=== PATIENT | female | born 2000 | race Caucasian/White ===

== ENCOUNTER → 2021-02-03 11:22 | Outpatient (BNVA) | payer OTHER, SELFPAY | PROVIDERS: Family Provider Nurse Practitioner Family; PCP Nurse Practitioner Family; Visit Provider Nurse Practitioner Family | DX: Z20.822 Contact with and (suspected) exposure to COVID-19 (principal); J06.9 Acute upper respiratory infection, unspecified | CPT/HCPCS: 87635 ==

== ENCOUNTER → 2021-05-24 10:46 | Outpatient (BNVA) | payer SELFPAY | PROVIDERS: Family Provider Nurse Practitioner Family; PCP Nurse Practitioner Family; Visit Provider Family Medicine | DX: E28.2 Polycystic ovarian syndrome (principal); R53.83 Other fatigue; Z13.6 Encounter for screening for cardiovascular disorders; Z13.1 Encounter for screening for diabetes mellitus; Z20.2 Contact with and (suspected) exposure to infections with a predominantly sexual mode of transmission; Z86.19 Personal history of other infectious and parasitic diseases | CPT/HCPCS: 80053; 80061; 84403; 84443; 85025; 87491; 87591; 87661 ==

== ENCOUNTER 2023-01-26 13:57 | Emergency (ER) | payer MEDICAID, SELFPAY ==
[2023-01-26 14:08] VITALS: BP 145/96; PULSE 105; RESP 17; TEMP 37.1; O2SAT 96; BMI 30.8
[2023-01-26 14:42] LABS: Basophils % 0.3 %; Eosinophils # 0.2 10^3/uL (0.0-0.8); Eosinophils % 1.8 %; Hematocrit 44.4 % (37.0-47.0); Hemoglobin 14.7 g/dL (11.5-15.3); Lymphocytes # 2.7 10^3/uL (0.8-4.8); Mean Corpuscular HGB Conc 33.1 g/dL (30.0-36.0); Mean Corpuscular Hemoglobin 27.6 pg (28.0-34.0); Mean Corpuscular Volume 83.5 fl (81-99); Mean Platelet Volume 9.2 fL (7.4-10.4); Monocytes # 0.7 10^3/uL (0.2-0.9); Monocytes % 6.8 %; Neutrophils # 6.27 10^3/uL (1.8-7.7); Neutrophils % 63.8 %; Nucleated Red Blood Cells % 0 %; Platelet Count 288 10^3/cmm (130-400); Red Blood Count 5.32 10^6/uL (4.1-5.3); Red Cell Distribution Width 12.9 % (12.1-15.1); White Blood Count 9.8 10^3/uL (4.0-10.0)
[2023-01-26 14:55] LABS: Add Urine Microscopic? YES; Bilirubin Urine Neg (Negative); Blood Urine 3+ (Negative); Glucose Urine UA Norm (Normal); Ketones Urine Negative (Negative); Leukocyte Esterase Urine 2+ (Negative); Nitrate Urine Negative (Negative); Protein Urine 2+ (Negative); RBC Urine >100 /hpf (0-2); Specific Gravity, Urine 1.005 (1.005-1.030); Sulfosalicylic Acid Urine Positive (Negative); Urine Appearance Cloudy (CLEAR); Urine Color Red (Yellow); Urobilinogen Urine Norm (Negative); pH Urine 8 (5-7)
[2023-01-26 14:56] LABS: Add Urine Culture? Yes; Bacteria Urine TRACE /hpf; Squamous Epithelial Cell Urine 0-4 /hpf (0-5)
[2023-01-26 14:57] LABS: HCG, Serum Qual Negative (Negative)
[2023-01-26 15:01] LABS: HCG Qualitative Urine. Negative (Negative)
[2023-01-26 15:02] LABS: Alanine Aminotransferase 35 U/L (0-33); Albumin Level 4.6 g/dL (3.5-5.2); Alkaline Phosphatase 93 U/L (35-105); Anion Gap 12.9 (5-19); Aspartate Amino Transferase 18 U/L (0-32); Blood Urea Nitrogen 12 mg/dL (6-20); Calcium 9.3 mg/dL (8.5-10.5); Carbon Dioxide 27 mmol/L (22-29); Chloride 102 mmol/L (98-107); Glomerular Filtration Rate 76.9 mL/min (90-130); Glucose 97 mg/dL (65-115); Osmolality Calculated 286 mOsm/kg (285-295); Potassium 3.9 mmol/L (3.5-5.1); Sodium 138 mmol/L (136-145); Total Bilirubin 0.4 mg/dL (0.15-1.2); Total Protein 7.6 g/dL (6.6-8.7)
[2023-01-26 15:30] LABS: Thyroid Stimulating Hormone 0.96 uIU/mL (0.27-4.20)
--- NOTE | 2023-01-26 15:34 | PC.PHAR ---
pt states she takes care of her own medications-pt has a symbicort 160-4.5 2 p bid written on 12/06/22 and colace 100mg hs prn written 11/18/22 both rxs are on hold-pt states use to take lexapro 10mg daily,metformin 500mg daily,prilosec 20mg daily,miralax 17g daily,spironolactone 25mg bid,zoloft 25mg daily,gabapentin 300mg tid (shes allergic to now),bupropion xl 150mg daily,risperidone 0.5mg tid,lisinopril 5mg daily and propranolol 10mg bid, not taken in over 6 months or longer-
--- NOTE | 2023-01-26 16:29 | ED_ITS ---
HPI - Female Genitourinary General: Chief complaint: Vaginal Bleeding Stated complaint: no period for 9 years, now bleeding 9days Time Seen by Provider: 01/26/23 14:32 History of Present Illness: 22-year-old female presents emergency room vaginal bleeding for the past 7 days. Patient further reveals history of PCOS and the menstruation for about 9 years. And reveals vaginal bleeding daily using a bowel 3-4 pads daily. She reveals some lower abdominal pain described the pain as throbbing sensation with severity of 5 out of 10. She felt dizzy today. No nausea, vomiting, diarrhea or bloody stool. Dysuria, hematuria urine frequency. No concern for STDs at this time. No new sexual partners. No vaginal discharge Associated symptoms: Deny vaginal discharge Review of Systems General: Reports: 10 or more systems reviewed and unremarkable except in HPI and below : Reports: vaginal bleeding and pelvic pain; Denies: flank pain, difficulty voiding, dysuria, urinary incontinence, hematuria, genital lesions, genital pruritis, vaginal dryness, vaginal odor, vaginal discharge, dysmenorrhea, metrorrhagia or amenorrhea FOR[facility]LY [facility] ED PFSH: Medical History (Updated 01/26/23 @ 16:34 by Pennie Pabon MD) Essential hypertension GERD (gastroesophageal reflux disease) Surgical History S/P tonsillectomy Family History Other Cancer Diabetes Hypertension Social History Smoking and tobacco status: never smoked Alcohol intake: current Alcohol intake frequency: few times a week Desire information about alcohol rehabilitation?: No Substance/Drug Use: never Desire information about substance/drug rehabilitation?: No Current gender identity: Female Physical Exam Const: COMMON NORMALS: no acute distress, average body habitus, patient oriented x3, no limitations, healthy appearing, alert and well nourished Chest: COMMONS NORMALS: normal inspection of the chest, normal palpation of entire chest wall, normal inspection of the breasts and normal palpation of the breasts Breast/axilla inspection: Yes normal inspection of the breasts BREAST/AXILLA PALPATION: Yes normal palpation of the breasts Resp: COMMON NORMALS: normal respiratory effort, No retractions, No use of accessory muscles, clear to auscultation bilaterally and percussion normal AUSCULTATION: clear to auscultation bilaterally PERCUSSION: percussion normal GI: COMMON NORMALS: Soft to palpation INSPECTION: Yes normal to inspection PALPATION: Yes Soft to palpation, Yes Tenderness to palpation present (GI), No Hepatomegaly present, No Splenomegaly present, No Hernia present, No Pulsatile mass present and No Ascites present : EXTERNAL FEMALE EXAM: No Hernia present SPECULUM EXAM - VAGINA: No foreign body SPECULUM EXAM - CERVIX: No Tissue present in the cervical os, Yes Cervical bleeding, No mucoid cervix, No watery cervix and No Abnormal cervical discharge present OB/EXTERNAL & SPECULUM: external exam normal and Active bleeding present; no foreign bodies, no herpetic lesions, no vaginal laceration and no vulvar erythema Extremity: COMMON NORMALS: normal to inspection, full ROM, capillary refill normal, no joint enlargement, no clubbing, cyanosis or edema, no calf tenderness and no pedal edema Neuro: COMMON NORMALS: patient oriented x3 SENSORIUM/ORIENTATION: Yes alert Skin: COMMON NORMALS: no rashes or lesions noted, no wounds, turgor normal, no jaundice, no petechiae and no mottling GENERAL SKIN EXAM: no rashes or lesions noted and turgor normal Course Consultations: Consultation #1: spoke with Dr Cortez and he recommeded Lysteda Vital Signs: Vital signs: Vital Signs Temperature 98.7 F 01/26/23 14:08 Pulse Rate 105 H 01/26/23 14:08 Respiratory Rate 17 01/26/23 14:08 Blood Pressure 145/96 01/26/23 14:08 Pulse Oximetry 96 01/26/23 14:08 Oxygen Delivery Me thod Room Air 01/26/23 14:08 MDM - Female Medical Decision Making She made comfortable emergency room. Pelvic examination was performed. Had e xtensive work-up to include labs. Discussed lab finding with the patient. She was given pain medication orally. Emmanuel patient with the on-call psychology fellow . He recommended Lysteda tid for 5 days Lab Data 01/26/23 14:32 01/26/23 14:32 Laboratory Results WBC 9.8 10^3/uL (4.0-10.0) 01/26/23 14:32 RBC 5.32 10^6/uL (4.1-5.3) H 01/26/23 14:32 Hgb 14.7 g/dL (11.5-15.3) 01/26/23 14:32 Hct 44.4 % (37.0-47.0) 01/26/23 14:32 MCV 83.5 fl (81-99) 01/26/23 14:32 MCH 27.6 pg (28.0-34.0) L 01/26/23 14:32 MCHC 33.1 g/dL (30.0-36.0) 01/26/23 14:32 RDW 12.9 % (12.1-15.1) 01/26/23 14:32 Plt Count 288 10^3/cmm (130-400) 01/26/23 14:32 MPV 9.2 fL (7.4-10.4) 01/26/23 14:32 Neut % (Auto) 63.8 % 01/26/23 14:32 Lymph % (Auto) 27.0 % 01/26/23 14:32 Coryell % (Auto) 6.8 % 01/26/23 14:32 Eos % (Auto) 1.8 % 01/26/23 14:32 Baso % (Auto) 0.3 % 01/26/23 14:32 Neut # (Auto) 6.27 10^3/uL (1.8-7.7) 01/26/23 14:32 Lymph # (Auto) 2.7 10^3/uL (0.8-4.8) 01/26/23 14:32 Coryell # (Auto) 0.7 10^3/uL (0.2-0.9) 01/26/23 14:32 Eos # (Auto) 0.2 10^3/uL (0.0-0.8) 01/26/23 14:32 Baso # (Auto) 0.0 10^3/uL (0.0-0.1) 01/26/23 14:32 Nucleated RBC % (auto) 0 % 01/26/23 14:32 Nucleated RBCs # 0.0 /100WBC 01/26/23 14:32 Sodium 138 mmol/L (136-145) 01/26/23 14:32 Potassium 3.9 mmol/L (3.5-5.1) 01/26/23 14:32 Chloride 102 mmol/L (98-107) 01/26/23 14:32 Carbon Dioxide 27 mmol/L (22-29) 01/26/23 14:32 Anion Gap 12.9 (5-19) 01/26/23 14:32 BUN 12 mg/dL (6-20) 01/26/23 14:32 Creatinine 0.9 mg/dL (0.5-0.9) 01/26/23 14:32 GFR Calculation 76.9 mL/min (90-130) L 01/26/23 14:32 Glucose 97 mg/dL (65-115) 01/26/23 14:32 Calculated Osmolality 286 mOsm/kg (285-295) 01/26/23 14:32 Calcium 9.3 mg/dL (8.5-10.5) 01/26/23 14:32 Total Bilirubin 0.4 mg/dL (0.15-1.2) 01/26/23 14:32 AST 18 U/L (0-32) 01/26/23 14:32 ALT 35 U/L (0-33) H 01/26/23 14:32 Alkaline Phosphatase 93 U/L (35-105) 01/26/23 14:32 Total Protein 7.6 g/dL (6.6-8.7) 01/26/23 14:32 Albumin 4.6 g/dL (3.5-5.2) 01/26/23 14:32 Globulin 3.0 g/dL (1.3-4.6) 01/26/23 14:32 TSH 0.96 uIU/mL (0.27-4.20) 01/26/23 14:32 HCG, Qual Negative (Negative) 01/26/23 14:36 Urine Color Red (Yellow) 01/26/23 14:36 Urine Appearance Cloudy (CLEAR) A 01/26/23 14:36 Urine pH 8 (5-7) H 01/26/23 14:36 Ur Specific Lov[place] 1.005 (1.005-1.030) 01/26/23 14:36 Urine Protein 2+ (Negative) H 01/26/23 14:36 Urine Glucose (UA) Norm (Normal) 01/26/23 14:36 Urine Ketones Negative (Negative) 01/26/23 14:36 Urine Blood 3+ (Negative) H 01/26/23 14:36 Urine Nitrate Negative (Negative) 01/26/23 14:36 Urine Bilirubin Neg (Negative) 01/26/23 14:36 Prot Sulfosalicylic Acd Positive (Negative) 01/26/23 14:36 Urine Urobilinogen Norm mg/dL (Negative) 01/26/23 14:36 Ur Leukocyte Esterase 2+ (Negative) H 01/26/23 14:36 Urine RBC >100 /hpf (0-2) H 01/26/23 14:36 Urine WBC 5-10 /hpf (0-5) H 01/26/23 14:36 Ur Squamous Epith Cells 0-4 /hpf (0-5) H 01/26/23 14:36 Amorphous Sediment Not Reportable 01/26/23 14:36 Urine Bacteria Trace /hpf (NONE) 01/26/23 14:36 Discharge Plan Discharge Patient Disposition: Home Clinical Impression: Vaginal bleeding, Dysfunctional uterine bleeding Condition: Stable Prescriptions: New tranexamic acid 650 mg tablet 650 mg PO TID 5 Days Qty: 15 0RF No Action Rolaids 550-110 mg Tablet,Chewable 2 tab PO Q6H PRN (Reason: Heartburn) famotidine 40 mg tablet 40 mg PO BEDTIME PRN (Reason: Heartburn) hydroxyzine HCl 50 mg Tablet 12.5 - 50 mg PO TID PRN (Reason: Anxiety) triamcinolone acetonide 0.1 % cream 1 applic topical BID PRN (Reason: Rash) mupirocin 2 % ointment 1 applic TOPICAL TID PRN (Reason: Rash) Ventolin HFA 90 mcg/actuation HFA aerosol inhaler 2 puff INHALATION Q4H PRN (Reason: Shortness Of Breath) Discharge Orders: Discharge ED (Routine); Ordered 01/26/23 Ordered By: Pennie Pabon Referrals: Nadeem Cortez MD [Physician] - 4-7 days Arturo Boyce FNP [Primary Care Provider] - Patient Instructions: Opioid Safety, Pain Management Activity Restrictions/Additional Instructions: Take all medication as prescribed. Return to emergency room if symptoms persist or worsen. Coding Level of Care Code ED Aircraft Inspector for Cici Conroy
[2023-01-26] MEDS: TRAMadol 50 mg Tablet PO (16:44)
== END 2023-01-26 16:58 | disposition home or self-care (01) ==
PROVIDERS: Physician Assistant; Emergency Provider Family Medicine; PCP Nurse Practitioner Family
DX: N93.8 Other specified abnormal uterine and vaginal bleeding (principal); I10 Essential (primary) hypertension; Z79.899 Other long term (current) drug therapy
CPT/HCPCS: 36415; 80053; 81001; 81025; 84443; 84703; 85025; 87086; 99283

== ENCOUNTER → 2023-02-06 09:30 | Outpatient (BNVA) | payer MEDICAID, SELFPAY | PROVIDERS: PCP Nurse Practitioner Family; Visit Provider Obstetrics & Gynecology | DX: E28.2 Polycystic ovarian syndrome (principal); I10 Essential (primary) hypertension; Z12.4 Encounter for screening for malignant neoplasm of cervix | CPT/HCPCS: 80053; 83001; 83520; 84146; 84403; 84443; 84702; 85025 ==

== ENCOUNTER → 2023-02-14 12:07 | Outpatient (BNVA) | payer MEDICAID, SELFPAY | PROVIDERS: PCP Nurse Practitioner Family; Visit Provider Obstetrics & Gynecology | DX: N92.6 Irregular menstruation, unspecified (principal); N83.8 Other noninflammatory disorders of ovary, fallopian tube and broad ligament | CPT/HCPCS: 76830 ==

== ENCOUNTER 2023-02-21 20:00 | Outpatient (CLI) | payer MEDICAID, SELFPAY | END 2023-02-21 20:01 | disposition home or self-care (01) | LOC: SLEEP 02-22 05:13 | PROVIDERS: PCP Nurse Practitioner Family; Visit Provider Nurse Practitioner Family | DX: G47.33 Obstructive sleep apnea (adult) (pediatric) (principal) | CPT/HCPCS: 95810 ==

== ENCOUNTER 2023-03-30 05:36 | Day surgery (SDC) | payer MEDICAID, SELFPAY ==
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
[2023-03-29 13:15] VITALS: BMI 31.9
[2023-03-30] VITALS (14 sets, daily range): BP systolic 98–143; BP diastolic 72–113; PULSE 88–110; RESP 14–18; TEMP 36.1–36.8; O2SAT 95–100
[2023-03-30] MEDS: sodium chloride 0.9% 1,000 ML 30 ML IV (06:34)
[2023-03-30 06:37] LABS: OR HCG Qualitative Urine Negative (Negative)
--- NOTE | 2023-03-30 06:45 | ANES.PREANE2 ---
Pre-Anesthetic Assessment Height/Weight: Height 1.7 m Weight 92.533 kg Temp Pulse Resp BP Pulse Ox O2 Del Method 97 F L 88 18 143/113 99 Room Air 03/30/23 06:16 03/30/23 06:16 03/30/23 06:16 03/30/23 06:16 03/30/23 06:16 03/30/23 06:16 Preop Diagnosis: abnormal uterine bleeding; chronic pelvic pain; infertility Operation Date: 03/30/23 07:00 Proposed Procedures p Laparoscopy(Not Applicable) - Randy Kim MD s Pelvic exam under anesthesia 63502, Pap [id number] R10.0,N97.9,N93.9(Not Applicable) - Randy Kim MD s Poylpectomy(Not Applicable) - Randy Kim MD s Hysteroscopy, endometrial sampling, possible endometrial Myosure 13943(Not Applicable) - Randy Kim MD s possible pelvic biopsies [id number](Not Applicable) - Randy Kim MD s Possible chromotubation of fallopian tubes 84614(Not Applicable) - Randy Kim MD Familial anesthetic complications: None Was Beta Indra taken within 24 hours: N/A Was Clonidine taken within 24 hours: N/A Last intake: Intake Last Liquid Date 03/29/23 Last Liquid Time 23:00 Last Solid Date 03/29/23 Last Solid Time 19:00 Social No alcohol and No tobacco Exam alert, oriented x 3, clear to auscultation bilaterally and regular rate & rhythm Airway Mallampati: Class II Dentition: chipped Pulmonary Asthma CV/HEM Hypertension GI Gastroesophageal Reflux Disease Metabolic pcos Neuropsych Anxiety Anesthetic Plan ASA status: 3 Anesthesia: General Risk of > 500 ml blood loss (7ml/kg in children): No Medications/Allergies Home Medications Medication Instructions Recorded Confirmed Last Taken Type albuterol sulfate 90 mcg/actuation 2 puff inhalation Q4H PRN 01/26/23 03/29/23 Unknown History aerosol inhaler (Ventolin HFA) Shortness Of Breath famotidine 40 mg tablet 40 mg PO BEDTIME PRN Heartburn 01/26/23 03/29/23 Unknown History hydroxyzine HCl 50 mg tablet 12.5 - 50 mg PO TID PRN Anxiety 01/26/23 03/29/23 Unknown History mupirocin 2 % topical ointment 1 applic topical TID PRN Rash 01/26/23 03/29/23 Unknown History triamcinolone acetonide 0.1 % 1 applic topical BID PRN Rash 01/26/23 03/29/23 Unknown History topical cream Rolaids PO PRN PRN Acid Reflux 03/29/23 Unknown History Allergies Allergy/AdvReac Type Severity Reaction Status Date / Time apple Allergy Severe ALGY-Anaphy Verified 03/30/23 06:23 laxis aspirin Allergy Severe ADR-Vomitin Verified 03/30/23 06:23 g gabapentin Allergy Intermediate ADR-Itching Verified 03/30/23 06:23 Estrogens Allergy ALGY-Hives Verified 03/30/23 06:23 ethinyl estradiol Allergy hives Verified 03/30/23 06:23 [From NuvaRing] etonogestrel [From NuvaRing] Allergy hives Verified 03/30/23 06:23 progesterone Allergy ALGY-Hives Verified 03/30/23 06:23 Current Medications Generic Name Dose Route Start Last Admin Trade Name Freq PRN Reason Stop Dose Admin Sodium Chloride 1,000 mls @ 30 mls/hr 03/30/23 06:00 03/30/23 06:34 Sodium Chloride 0.9% IV 03/31/23 05:59 30 mls/hr .Q24H FARZAD Administration PFSH Anesthesia Medical History Essential hypertension GERD (gastroesophageal reflux disease) Surgical History S/P tonsillectomy Family History Mother Colon cancer Uterine cancer Hypertension Thyroid disease Father Heart disease Hypertension Hyperlipidemia Diabetes Other Cancer Denies family history of Ovarian cancer Breast cancer Stroke Social History Smoking and tobacco status: never smoked Alcohol intake: current Alcohol intake frequency: few times a week Desire information about alcohol rehabilitation?: No Substance/Drug Use: never Desire information about substance/drug rehabilitation?: No Current gender identity: Female Data Anesthesia Cardiac Studies: No Data to Display
--- NOTE | 2023-03-30 06:51 | W.PM.OPSUD ---
Surgery/Procedure H&P Update DATE OF PROCEDURE: March 30, 2023 DATE H&P PERFORMED: 03/27/23 H&P UPDATE INFORMATION: I have reviewed H&P completed within last 30 days, I have examined patient prior to procedure and No changes to prior documentation PREOP DIAGNOSIS: abnormal uterine bleeding; chronic pelvic pain; infertility PLANNED PROCEDURE: Operation Date: 03/30/23 07:00 Proposed Procedures p Laparoscopy(Not Applicable) - Randy Kim MD s Pelvic exam under anesthesia 39767, Pap [id number] R10.0,N97.9,N93.9(Not Applicable) - Randy Kim MD s Poylpectomy(Not Applicable) - Randy Kim MD s Hysteroscopy, endometrial sampling, possible endometrial Myosure 31580(Not Applicable) - Randy Kim MD s possible pelvic biopsies 21374(Not Applicable) - Randy Kim MD s Possible chromotubation of fallopian tubes 67473(Not Applicable) - Randy Kim MD
[2023-03-30] MEDS: citric acid-sodium citrate 30 mL UDC PO (07:01)
[2023-03-30] MEDS: fentaNYL 50 mcg/mL INJ 2mL IVP (08:43)
[2023-03-30] MEDS: meperidine 50 mg/mL INJ 12.5 MG IVP (08:47)
--- NOTE | 2023-03-30 08:51 | SUR.OPER ---
03/30/23 0830 Methylene blue given intrapoeratively for chromotubation of fallopian tubes.
--- NOTE | 2023-03-30 09:40 | ANE.PACU2 ---
Inpatient post-anesthesia follow up: Airway intact: Yes Vital signs: Temperature 98.2 F Pulse Rate 107 Respiratory Rate 18 Blood Pressure 136/107 Pulse Oximetry 99 Oxygen Delivery Me thod Room Air Oxygen Flow Rate 2 Fraction of Inspir ed Oxygen Hydration adequate: Yes Nausea and vomiting: No Pain level: 1 Mental status: Baseline
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
[2023-04-03 09:38] LABS: Source: Cervix
== END 2023-03-30 10:15 | disposition home or self-care (01) ==
PROVIDERS: Anesthesiology; PCP Nurse Practitioner Family; Visit Provider Obstetrics & Gynecology
PROC: (CPT 49320; principal; 2023-03-30 07:00)
PROC: (CPT 49320; 2023-03-30 07:00)
PROC: 0UDB8ZZ Extraction of Endometrium, Via Natural or Artificial Opening Endoscopic (ICD-10-PCS; CPT 58558; 2023-03-30 07:00)
PROC: 3E0P7KZ Introduction of Other Diagnostic Substance into Female Reproductive, Via Natural or Artificial Opening (ICD-10-PCS; CPT 58350; 2023-03-30 07:00)
DX: R10.2 Pelvic and perineal pain (principal); N97.9 Female infertility, unspecified; N93.9 Abnormal uterine and vaginal bleeding, unspecified; I10 Essential (primary) hypertension; K21.9 Gastro-esophageal reflux disease without esophagitis; E28.2 Polycystic ovarian syndrome
CPT/HCPCS: 49320; 58350; 58558; 81025; 84703; 87624; 88305; J0330; J1100; J1200; J2175; J2250; J2405; J2704; J2710; J3010; J3490; J7030; Q9968

== ENCOUNTER 2023-08-15 08:26 | Outpatient (CLI) | payer MEDICAID, SELFPAY ==
--- NOTE | 2023-08-15 08:32 | US_ITS ---
WS: [id number] RIGHT UPPER QUADRANT ULTRASOUND HISTORY: PERIUMBILIC ABDOMINAL TENDERNESS COMPARISON: None available. Liver: 14.6 cm in length. Normal size liver and echogenicity. No bile duct dilatation or mass. Portal Vein: Normal hepatopetal flow with monophasic waveform. Gallbladder: Normally distended gallbladder with small stone. No acute cholecystitis. CBD: 0.3 cm Pancreas: Normal size and echogenicity. Right kidney: 11.8 cm in length. Normal size and echogenicity. No hydronephrosis or mass. Aorta and IVC: Unremarkable abdominal aorta and IVC. No ascites. No abnormality in the region of the umbilicus. IMPRESSION: 1. Cholelithiasis without acute cholecystitis. 2. No abnormality noted in the region of the umbilicus.
== END 2023-08-15 08:27 | disposition home or self-care (01) ==
LOC: RAD 08:28
PROVIDERS: Visit Provider Nurse Practitioner Family
DX: K80.20 Calculus of gallbladder without cholecystitis without obstruction (principal); R10.815 Periumbilic abdominal tenderness; R10.33 Periumbilical pain
CPT/HCPCS: 76705

== ENCOUNTER 2023-08-31 09:47 | Outpatient (CLI) | payer MEDICAID, SELFPAY ==
--- NOTE | 2023-08-31 10:14 | NM_ITS ---
WS: [id number] NUCLEAR MEDICINE HIDA SCAN WITH GALLBLADDER EJECTION FRACTION HISTORY: PERIUMBILIC ABDOMINAL TENDERNESS COMPARISON: Ultrasound 08/15/2023 TECHNIQUE: The patient was intravenously injected with 7.1 mCi of TC99m Mebrofenin. Immediate imaging over the right upper quadrant was followed by 5 minute image and additional images for a total of 60 minutes. Normal uptake of radiotracer throughout the liver. Activity identified in the gallbladder at 10 minutes and well distended by 60 minutes. Activity in the proximal small bowel was seen by 20 minutes. Good washout of the radiotracer from the liver by 60 minutes. The patient then drank 8 ounces of Ensure Plus. Ejection fraction at 60 minutes was 83%. Normal GB ej ection fraction is 35-75%. Post fatty meal symptoms: None. IMPRESSION: 1. Normal HIDA scan. 2. Normal gallbladder ejection fraction.
[2023-08-31 11:14] LABS: HCG Qualitative Urine. Negative (Negative)
== END 2023-08-31 09:48 | disposition home or self-care (01) ==
PROVIDERS: Family Provider Radiology Neuroradiology; Visit Provider Nurse Practitioner Family
DX: R10.815 Periumbilic abdominal tenderness (principal)
CPT/HCPCS: 78227; 81025; A9537

== ENCOUNTER 2023-12-09 13:04 | Emergency (ER) | payer MEDICAID, SELFPAY ==
[2023-12-09 13:29] VITALS: BP 141/103; PULSE 91; RESP 17; TEMP 37.2; O2SAT 100
[2023-12-09 13:32] VITALS: BP 122/98; PULSE 89; RESP 17; O2SAT 100
--- NOTE | 2023-12-09 13:39 | W.ED.URI ---
Documented by User: JULI Draper 12/09/23 14:13 HPI - URI/Sore Throat General: Chief Complaint: Upper Respiratory Infection Stated Complaint: Swelling Time Seen by Provider: 12/09/23 13:16 Source: patient Mode of arrival: ambulatory Limitations: no limitations History of Present Illness: Patient is a 23-year-old female presenting to the emergency department complaining of tongue swelling onset this morning. Patient states that she was also drooling, though has not reported any respiratory complaints or throat swelling/feeling of throat closing. She does state that she takes lisinopril, and denies any recent exotic foods or known potential allergens that could have caused this. She states that it has been improving, and she has not taken anything as she cannot take Benadryl due to allergies. No other new recent medications began. No chest pain, headache, or any other symptoms reported this time. MD elicited complaint: other (Tongue swelling) Onset (ago): hour(s) Consistency: improved Severity: moderate Context: other (On lisinopril) Associated symptoms: Deny abdominal pain, chills, chest pain, diarrhea, ear or mastoid pain, fever(s), headache(s), nausea or vomiting Review of Systems General: Reports: 10 or more systems reviewed and unremarkable except in HPI and below Const: Denies: fever(s), chills or fatigue Eyes: Denies: change in vision ENMT: Reports: swelling of lips/tongue; Denies: throat pain, ear or mastoid pain or nasal discharge Card: Denies: chest pain, palpitations, swelling of feet/ankles or lightheadedness Resp: Denies: dyspnea, productive cough or wheezing GI: Denies: abdominal pain, nausea, vomiting, diarrhea or constipation : Denies: flank pain, difficulty voiding, dysuria or urinary frequency Musc: Denies: neck pain, back pain or joint pain Skin/Breast: Denies: rash Neuro: Denies: headache(s), numbness in extremities or weakness in extremities PFSH ED PFSH: Medical History Essential hypertension GERD (gastroesophageal reflux disease) Surgical History S/P tonsillectomy Family History Mother Colon cancer Uterine cancer Hypertension Thyroid disease Father Heart disease Hypertension Hyperlipidemia Diabetes Other Cancer Denies family history of Ovarian cancer Breast cancer Stroke Social History Smoking and tobacco/nicotine status: never used tobacco/nicotine Alcohol intake: current Alcohol intake frequency: few times a week Substance/Drug Use: never Current gender identity: Female Physical Exam Const: COMMON NORMALS: no acute distress, patient oriented x3, no limitations and healthy appearing GENERAL APPEARANCE: cooperative and comfortable ORIENTATION/CONSCIOUSNESS: Yes awake OTHER: No respiratory distress or drooling HENMT: COMMON NORMALS: normocephalic, atraumatic, Normal external nose present and Normal nasal mucous membranes and turbinates present HEAD & SCALP: normocephalic and atraumatic FACE & SINUS: normal facial exam and face symmetric NOSE: Normal external nose present and Normal nasal mucous membranes and turbinates present MOUTH: Normal oral and palatal mucosa present, lip normal and tongue normal THROAT: posterior oropharynx normal OTHER: No appreciable tongue or throat swelling. Oropharynx is not erythematous or edematous Eye: COMMON NORMALS: Equal, round and reactive pupils present, EOMs intact bilaterally and conjunctivae normal CONJUNCTIVA: Yes conjunctivae normal PUPIL: Yes Equal, round and reactive pupils present Neck/C-Spine: COMMON NORMALS: full ROM and no lymphadenopathy Chest: COMMONS NORMALS: normal inspection of the chest Resp: COMMON NORMALS: normal respiratory effort, No retractions, No use of accessory muscles and clear to auscultation bilaterally EFFORT & INSPECTION: Yes able to speak in complete sentences AUSCULTATION: clear to auscultation bilaterally OTHER: No obvious respiratory distress Cardio: COMMON NORMALS: regular rate, regular rhythm, S1 normal heart sound present, S2 normal heart sound present, No gallops present (Cardio), No clicks present (Cardio) and No murmurs present (Cardio) RATE: regular rate RHYTHM: regular rhythm HEART SOUNDS: S1 normal heart sound present and S2 normal heart sound present Extremity: COMMON NORMALS: normal to inspection and full ROM Neuro: COMMON NORMALS: patient oriented x3, moves all extremities, no focal motor deficits and no sensory deficits noted Course Vital Signs: Vital signs: Vital Signs Temperature 98.9 F 12/09/23 13:29 Pulse Rate 79 12/09/23 14:31 Respiratory Rate 17 12/09/23 14:31 Blood Pressure 128/99 12/09/23 14:31 Pulse Oximetry 98 12/09/23 14:31 Oxygen Delivery Me thod Room Air 12/09/23 13:32 MDM - URI/Sore Throat Medical Decision Making Patient presented to the emergency department for 1 day of tongue swelling. On arrival her vitals were unremarkable and she was 100% on room air. She does state that she takes lisinopril, will have her stop this immediately as I believe this may potentially be causing her angioedema. She is given a shot of Decadron here in the emergency department, states she has an allergy to Benadryl so this is withheld. Upon monitoring, she states she is ready to go home as she states improvement and says her spouse is urging her to leave. I discussed with her reasons to return, to which she understands. She is to orange picker losartan at her pharmacy and follow-up with primary care early next week for reevaluation. Patient understands this plan will be discharged home. I did discuss this disposition with supervising ED physician, Dr. Miller, who agrees. No radiology studies performed this visit Discharge Plan Discharge Patient Disposition: Home Clinical Impression: Angioedema Qualifiers: Encounter type: initial encounter Qualified Code(s): T78.3XXA - Angioneurotic edema, initial encounter Condition: Stable Prescriptions: New losartan 25 mg tablet 25 mg PO DAILY Qty: 30 0RF Discontinued lisinopril 5 mg tablet 5 mg No Action famotidine 40 mg tablet 40 mg PO BEDTIME PRN (Reason: Heartburn) hydroxyzine HCl 50 mg Tablet 12.5 - 50 mg PO TID PRN (Reason: Anxiety) triamcinolone acetonide 0.1 % cream 1 applic topical BID PRN (Reason: Rash) mupirocin 2 % ointment 1 applic TOPICAL TID PRN (Reason: Rash) albuterol sulfate [Ventolin HFA] 90 mcg/actuation HFA aerosol inhaler 2 puff INHALATION Q4H PRN (Reason: Shortness Of Breath) Rolaids PO PRN PRN (Reason: Acid Reflux) tramadol 50 mg tablet 50 mg PO BID PRN (Reason: pain) Qty: 20 0RF Discharge Orders: Discharge ED (Routine); Ordered 12/09/23 Ordered By: Leonardo Rodarte Discharge Diet: Advance as tolerated Discharge Activity: Resume usual activity Patient Instructions: Angioedema (ED) Activity Restrictions/Additional Instructions: Stop your lisinopril immediately. Take losartan as prescribed. Follow-up with primary care early next week as discussed. Monitor your airway and return with any new or concerning symptoms may have. Coding Level of Care Code ED Learning Support Resource Room Teacher for Chg Fwd Documented by User: Wilman Blackburn DO 12/11/23 16:51 HPI - URI/Sore Throat General: Chief Complaint: Upper Respiratory Infection Stated Complaint: Swelling Time Seen by Provider: 12/09/23 13:16 PFSH ED PFSH: Medical History Essential hypertension GERD (gastroesophageal reflux disease) Surgical History S/P tonsillectomy Family History Mother Colon cancer Uterine cancer Hypertension Thyroid disease Father Heart disease Hypertension Hyperlipidemia Diabetes Other Cancer Denies family history of Ovarian cancer Breast cancer Stroke Social History Smoking and tobacco/nicotine status: never used tobacco/nicotine Alcohol intake: current Alcohol intake frequency: few times a week Substance/Drug Use: never Current gender identity: Female Course Vital Signs: Vital signs: Vital Signs Temperature 98.9 F 12/09/23 13:29 Pulse Rate 79 12/09/23 14:31 Respiratory Rate 17 12/09/23 14:31 Blood Pressure 128/99 12/09/23 14:31 Pulse Oximetry 98 12/09/23 14:31 Oxygen Delivery Me thod Room Air 12/09/23 13:32 MDM - URI/Sore Throat Medical Decision Making Patient presented to the emergency department for 1 day of tongue swelling. On arrival her vitals were unremarkable and she was 100% on room air. She does state that she takes lisinopril, will have her stop this immediately as I believe this may potentially be causing her angioedema. She is given a shot of Decadron here in the emergency department, states she has an allergy to Benadryl so this is withheld. Upon monitoring, she states she is ready to go home as she states improvement and says her spouse is urging her to leave. I discussed with her reasons to return, to which she understands. She is to orange picker losartan at her pharmacy and follow-up with primary care early next week for reevaluation. Patient understands this plan will be discharged home. I did discuss this disposition with supervising ED physician, Dr. Miller, who agrees. Chart reviewed Discharge Plan Discharge Patient Disposition: Home Clinical Impression: Angioedema Qualifiers: Encounter type: initial encounter Qualified Code(s): T78.3XXA - Angioneurotic edema, initial encounter Condition: Stable Prescriptions: New losartan 25 mg tablet 25 mg PO DAILY Qty: 30 0RF Discontinued lisinopril 5 mg tablet 5 mg No Action famotidine 40 mg tablet 40 mg PO BEDTIME PRN (Reason: Heartburn) hydroxyzine HCl 50 mg Tablet 12.5 - 50 mg PO TID PRN (Reason: Anxiety) triamcinolone acetonide 0.1 % cream 1 applic topical BID PRN (Reason: Rash) mupirocin 2 % ointment 1 applic TOPICAL TID PRN (Reason: Rash) albuterol sulfate [Ventolin HFA] 90 mcg/actuation HFA aerosol inhaler 2 puff INHALATION Q4H PRN (Reason: Shortness Of Breath) Rolaids PO PRN PRN (Reason: Acid Reflux) tramadol 50 mg tablet 50 mg PO BID PRN (Reason: pain) Qty: 20 0RF Discharge Orders: Discharge ED (Routine); Ordered 12/09/23 Ordered By: Leonardo Rodarte Discharge Diet: Advance as tolerated Discharge Activity: Resume usual activity Patient Instructions: Angioedema (ED) Activity Restrictions/Additional Instructions: Stop your lisinopril immediately. Take losartan as prescribed. Follow-up with primary care early next week as discussed. Monitor your airway and return with any new or concerning symptoms may have. Coding Level of Care Code ED Learning Support Resource Room Teacher for Cici Conroy
[2023-12-09] MEDS: dexamethasone 10 mg/mL INJ IM (14:09)
[2023-12-09 14:31] VITALS: BP 128/99; PULSE 79; RESP 17; O2SAT 98
== END 2023-12-09 14:30 | disposition home or self-care (01) ==
PROVIDERS: Emergency Provider Physician Assistant
DX: T78.3XXA Angioneurotic edema, initial encounter (principal); I10 Essential (primary) hypertension; X58.XXXA Exposure to other specified factors, initial encounter
CPT/HCPCS: 96372; 99284; J1100